=== PATIENT | female | born 1975 | race Caucasian/White ===

== ENCOUNTER 2023-01-02 01:57 | Emergency (ER) | payer OTHER, SELFPAY ==
[2023-01-02 02:24] VITALS: BP 158/84; PULSE 88; RESP 16; TEMP 36.4; O2SAT 97; BMI 27.5
--- NOTE | 2023-01-02 03:48 | PC.NURSE ---
pt returned to the waiting room and states they where out in the car smoking and scratching tickets.
--- NOTE | 2023-01-02 05:12 | PC.NURSE ---
pt left w/o been seen, charge nurse aware
--- NOTE | 2023-01-02 05:14 | PC.NURSE ---
pt left w/o been seen, charge nurse aware
== END 2023-01-02 05:14 | disposition left against medical advice (07) ==
PROVIDERS: Emergency Provider Emergency Medicine
DX: R21 Rash and other nonspecific skin eruption (principal)
CPT/HCPCS: 99281